=== PATIENT | male | born 1965 | race Asian ===

== ENCOUNTER → 2024-11-15 | Outpatient (CLI) | payer OTHER | END | disposition home or self-care (01) | LOC: RADMN 11:02 | PROVIDERS: ATTEND Chiropractor | DX: S33.5XXA Sprain of ligaments of lumbar spine, initial encounter (principal); M47.815 Spondylosis without myelopathy or radiculopathy, thoracolumbar region; M41.86 Other forms of scoliosis, lumbar region; X58.XXXA Exposure to other specified factors, initial encounter; Y93.89 Activity, other specified; Y92.89 Other specified places as the place of occurrence of the external cause; Y99.8 Other external cause status | CPT/HCPCS: 72100 ==